=== PATIENT | female | born 1990 | race Two or more races ===

== ENCOUNTER 2019-10-27 15:38 | Emergency (ER) | payer BC ==
--- NOTE | 2019-10-27 16:39 | ED ---
Chest Pain HPI - General Chief Complaint: Chest Pain Stated Complaint: chest pressure-sent by Time Seen by Provider: 10/27/19 16:07 Source: patient, RN notes reviewed, old records reviewed Mode of arrival: ambulatory Limitations: no limitations - History of Present Illness Initial Comments: This is a 21-year-old female DF for evaluation. She presents today for evaluation chest pain. Patient's no chest chest pain earlier in the week about 2 days ago. Pain was on and off for about 3 days pressure-like left-sided chest pain. PatientMedical history no significant family history of heart disease. He does state that her bladder her father had a blood clot which was after surgery. Patient otherwise has no recent sick contacts or travel history. Patient herself has no high blood pressure and questionable diabetes and is a nonsmoker MD Complaint: chest pain -: days(s) Onset: during rest Pain Location: substernal, left chest Quality: heaviness Consistency: now resolved Improves With: nothing Worsens With: nothing Anginal Symptoms: other (No current symptoms) Other Symptoms: other (symptoms) Treatments Prior to Arrival: none - Related Data Previous Rx's Medication Instructions Recorded Cephalexin [Keflex] 500 mg PO Q6HR 10 Days cap 04/23/14 Allergies Allergy/AdvReac Type Severity Reaction Status Date / Time No Known Allergies Allergy Verified 04/23/14 13:57 Review of Systems ROS Statement: Those systems with pertinent positive or pertinent negative responses have been documented in the HPI. ROS Other: All systems not noted in ROS Statement are negative. EKG Findings - EKG Comments: EKG Findings:: EKG shows NSR 97 [address] 144 QRS 110 QTc 490 Past Medical History Past Medical History: No Reported History History of Any Multi-Drug Resistant Organisms: None Reported Past Surgical History: No Surgical Hx Reported Past Psychological History: No Psychological Hx Reported Smoking Status: Never smoker Past Alcohol Use History: None Reported Past Drug Use History: None Reported General Exam Limitations: no limitations General appearance: alert, in no apparent distress Head exam: Present: atraumatic, normocephalic, normal inspection Eye exam: Present: normal appearance, PERRL, EOMI. Absent: scleral icterus, conjunctival injection, periorbital swelling ENT exam: Present: normal exam, mucous membranes moist Neck exam: Present: normal inspection. Absent: tenderness, meningismus, lymphadenopathy Respiratory exam: Present: normal lung sounds bilaterally. Absent: respiratory distress, wheezes, rales, rhonchi, stridor Cardiovascular Exam: Present: regular rate, normal rhythm, normal heart sounds. Absent: systolic murmur, diastolic murmur, rubs, gallop, clicks GI/Abdominal exam: Present: soft, normal bowel sounds. Absent: distended, tenderness, guarding, rebound, rigid Extremities exam: Present: normal inspection, full ROM, normal capillary refill. Absent: tenderness, pedal edema, joint swelling, calf tenderness Back exam: Present: normal inspection Neurological exam: Present: alert, oriented X3, CN II-XII intact Psychiatric exam: Present: normal affect, normal mood Skin exam: Present: warm, dry, intact, normal color. Absent: rash Course Vital Signs 10/27/19 15:53 Temperature 98.6 F Pulse Rate 94 Respiratory 19 Rate Blood Pressure 152/107 O2 Sat by Pulse 97 Oximetry - Reevaluation(s) Reevaluation #1: 10/27/19 18:01 Medical record is reviewed Reevaluation #2: 10/27/19 18:01 EKG from outpatient facility is reviewed Chest Pain MDM - MDM 29 female to the ER for evaluation patient presents today for evaluation of chest pain. Chest pain atypical x-ray she has no chest pain currently here in the ER EKG is negative troponin and d-dimer negative. Patient can be discharged home Disposition Clinical Impression: Atypical chest pain, Chest pain Disposition: HOME SELF-CARE Condition: Good Instructions (If sedation given, give patient instructions): Chest Pain (ED) Is patient prescribed a controlled substance at d/c from ED?: No Referrals: Elyssa Stauffer MD [Primary Care Provider] - 1-2 days
--- NOTE | 2019-10-27 17:23 | XR ---
EXAMINATION TYPE: XR chest 2V DATE OF EXAM: 10/27/2019 COMPARISON: None INDICATION: Chest pain TECHNIQUE: Frontal and lateral views of the chest are obtained. FINDINGS: The heart size is normal. The pulmonary vasculature is normal. The lungs are clear. IMPRESSION: 1. No acute pulmonary process.
[2019-10-27] MEDS ORDERED: SODIUM CHLORIDE 0.9% 1,000 ML IV STA (17:36)
[2019-10-27 17:50] LABS: Basophils % (A) 0 %; Eosinophils # (A) 0.2 k/uL (0-0.7); Eosinophils % (A) 1 %; HGB 14.8 gm/dL (11.4-16.0); Lymphocytes # (A) 2.4 k/uL (1.0-4.8); Lymphocytes % (A) 20 %; MCH 28.2 pg (25.0-35.0); MCHC 34.4 g/dL (31.0-37.0); MCV 81.9 fL (80.0-100.0); Mean Platelet Volume 7.9; Monocytes # (A) 0.5 k/uL (0-1.0); Monocytes % (A) 4 %; Neutrophils # (A) 8.8 k/uL (1.3-7.7); Neutrophils % (A) 73 %; Platelet Count 366 k/uL (150-450); RBC 5.25 m/uL (3.80-5.40); RDW 12.8 % (11.5-15.5); WBC 12.1 k/uL (3.8-10.6)
[2019-10-27 17:57] LABS: ALT 22 U/L (4-34); AST 28 U/L (14-36); African American GFR (CKD) >90 (>60 ml/min/1.73 sqM); Albumin 4.6 g/dL (3.5-5.0); Alkaline Phosphatase 71 U/L (38-126); Anion Gap 10 mmol/L; Blood Urea Nitrogen 12 mg/dL (7-17); Calcium 10.1 mg/dL (8.4-10.2); Carbon Dioxide 24 mmol/L (22-30); Chloride 104 mmol/L (98-107); Creatine Kinase 27 U/L (30-135); Glucose 105 mg/dL (74-99); Magnesium 1.9 mg/dL (1.6-2.3); Non-African American GFR(CKD) >90 (>60 ml/min/1.73 sqM); Potassium 4.2 mmol/L (3.5-5.1); Sodium 138 mmol/L (137-145); Total Bilirubin 0.4 mg/dL (0.2-1.3); Total Protein 7.9 g/dL (6.3-8.2)
[2019-10-27 18:02] LABS: D-Dimer <0.17 mg/L FEU (<0.60); INR 0.9 (<1.2); Partial Thromboplastin Time 24.2 sec (22.0-30.0); Prothrombin Time 9.8 sec (9.0-12.0)
[2019-10-27 19:05] VITALS: BP 152/94; PULSE 92; RESP 16; TEMP 98.1
== END 2019-10-27 19:10 | disposition home or self-care (01) ==
LOC: EC 15:38
DX: R07.89 Other chest pain (principal)
CPT/HCPCS: 36415; 71046; 80053; 82550; 83690; 83735; 83880; 84484; 85025; 85379; 85610; 85730; 93005; 96360; 99285